=== PATIENT | female | born 1995 | race Two or more races ===

== ENCOUNTER 2025-09-29 16:57 | Emergency (ER) | payer OTHER ==
[~2025-09-29] VITALS: Ht 157.5 cm; Wt 59.0 kg
[2025-09-29 17:30] VITALS: BP 100/62; O2SAT 100
[2025-09-29] MEDS ORDERED: ONDANSETRON HCL 2 MG/ML VIAL IV STA (17:46)
[2025-09-29] MEDS ORDERED: FAMOTIDINE/PF 20 MG/2 ML VIAL IV STA (17:46)
[2025-09-29] MEDS ORDERED: 0.9 % SODIUM CHLORIDE 1,000 ML IV STA (17:46)
[2025-09-29 19:17] LABS: BASO % 0.3 % (0.1-1.2); EOS # 0.01 (0.04-0.54); EOS % 0.1 % (0.7-7.0); LYMPH # 0.19 (1.18-3.74); LYMPH % 2.6 % (19.3-53.1); MEAN PLATELET VOLUME 10.10 fl (9.4-12.4); MONO # 0.58 (0.24-0.82); MONO % 7.9 % (4.7-12.5); NEUT # 6.53 (1.56-6.13); NEUT % 89.0 % (34.0-71.1); RED CELL DISTRIBUTION WIDTH 11.9 % (11.6-14.4)
[2025-09-29 19:18] LABS: ERYTHROCYTE SEDIMENTATION RATE 2 mm/hr (0-20)
[2025-09-29 19:35] LABS: INR 1.02
[2025-09-29 19:39] LABS: ALT/SGPT 16.0 U/L (12-78); AST/SGOT 7.0 U/L (15-37); BILIRUBIN TOTAL 0.63 mg/dL (0.3-1.2); BUN CREA RATIO 12.0 (7.0-25.0); CREATININE SERUM 0.9 mg/dL (0.55-1.02); GFR 74.02; GLOBULINA 2.9 G/DL (2.4-3.5); GLUCOSE FASTING 103.0 mg/dL (65-100); OSMOLALITY SERUM 279.0 MOSM/KG (275-295); URINE APPEARANCE Clear; URINE BILIRRUBIN Negative (NEGATIVE); URINE BLOOD Negative; URINE COLOR Yellow; URINE GLUCOSE Negative (NEGATIVE); URINE KETONE Negative (NEGATIVE); URINE LEUKOCYTE Negative; URINE NITRATE Negative; URINE PROTEIN Negative (NEGATIVE); URINE UROBILINOGEN 0.2 E.U./dl
[2025-09-29 19:43] LABS: URINE BACTERIA 507.6 uL (0.0-1933); URINE EPITHELIAL CELLS 4.5 uL (0.0-38.8); URINE WBC 8.8 uL (0.0-23.2)
[2025-09-29 19:54] LABS: COVID-19 AG NEGATIVE (NEGATIVE)
[2025-09-29 19:56] LABS: URINE CAST 0.14 uL (0.0-1.40); URINE RBC 0.8 uL (0.0-20.8)
[2025-09-29] MEDS ORDERED: MUCINEX D ER 11 EACH PO (20:41)
[2025-09-29] MEDS ORDERED: OSEL75CA PO (20:41)
[2025-09-29] MEDS ORDERED: ACETAMINOPHEN 500 MG GEL..CAP PO STA (20:41)
[2025-09-29] MEDS ORDERED: ACETAMINOPHEN 500 MG GEL..CAP PO ONE (21:08)
== END 2025-09-29 22:00 | disposition home or self-care (01) ==
LOC: ER 16:57
PROVIDERS: Physician Assistant Medical
DX: J10.1 Influenza due to other identified influenza virus with other respiratory manifestations (principal); B34.9 Viral infection, unspecified; Z20.822 Contact with and (suspected) exposure to COVID-19
CPT/HCPCS: 36415; 96365; 99282; J2405; J3490; J7030